=== PATIENT | male | born 1975 | race Caucasian/White ===

== ENCOUNTER 2018-01-03 10:00 | Emergency (ER) | payer SELFPAY ==
[2018-01-03] MEDS ORDERED: TETRACAINE HCL 0.5% 2ML OPTH ONE (10:33)
[2018-01-03] MEDS ORDERED: FLUORESCEIN SODIUM 0.6 MG/WRAP ONE (10:33)
[2018-01-03] MEDS ORDERED: HYDROCODONE/APAP 10/325 TAB ONE (10:37)
[2018-01-03] MEDS ORDERED: TETANUS & DIPHTHERIA TOX,ADULT 0.5 ML VIAL ONE (11:00)
--- NOTE | 2018-01-03 11:01 | EDPHYS ---
Physician Documentation [facility] Name: Fredis Calderon Age: 42 yrs Sex: Male : 1975 Arrival Date: 01/03/2018 Time: 10:03 Bed 10 Private MD: None, None ED Physician Sourav Dexter HPI: 01/03 10:32 This 42 yrs old Male presents to ER via Ambulatory with complaints of Eye joe Pain, Eye Injury. 10:32 The patient is experiencing pain, redness, The patient sustained contusion, to the left joe eye. Onset: The symptoms/episode began/occurred just prior to arrival, today. Duration: the symptoms are continuous. Aggravated by opening eye, Alleviated by blinking, covering eye. Associated signs and symptoms: Pertinent positives: headache. Severity of symptoms: At their worst the symptoms were moderate in the emergency department the symptoms are unchanged. The patient has not experienced similar symptoms in the past. Historical: - Allergies: 10:12 No Known Allergies; hj - Home Meds: 10:12 None [Active]; hj - PMHx: 10:12 Hypothyroidism; Pneumonia; hj - PSHx: 10:12 None; hj - Immunization history:: Adult Immunizations not up to date. - Family history:: not pertinent. - Social history:: Smoking status: unknown. ROS: 10:32 Constitutional: Negative for fever, chills, and weight loss, ENT: Negative for injury, joe pain, and discharge, Neck: Negative for injury, pain, and swelling, Cardiovascular: Negative for chest pain, palpitations, and edema, Respiratory: Negative for shortness of breath, cough, wheezing, and pleuritic chest pain, Abdomen/GI: Negative for abdominal pain, nausea, vomiting, diarrhea, and constipation, Back: Negative for injury and pain, : Negative for injury, bleeding, discharge, and swelling, MS/Extremity: Negative for injury and deformity, Skin: Negative for injury, rash, and discoloration, Neuro: Negative for headache, weakness, numbness, tingling, and seizure, Psych: Negative for depression, anxiety, suicide ideation, homicidal ideation, and hallucinations, Allergy/Immunology: Negative for hives, rash, and allergies, Endocrine: Negative for neck swelling, polydipsia, polyuria, polyphagia, and marked weight changes, Hematologic/Lymphatic: Negative for swollen nodes, abnormal bleeding, and unusual bruising. 10:32 Eyes: Positive for discharge, foreign body sensation, injury or acute deformity, pain, redness. Exam: 10:34 Constitutional: This is a well developed, well nourished patient who is awake, alert, joe and in no acute distress. Head/Face: Normocephalic, atraumatic. ENT: Nares patent. No nasal discharge, no septal abnormalities noted. Tympanic membranes are normal and external auditory canals are clear. Oropharynx with no redness, swelling, or masses, exudates, or evidence of obstruction, uvula midline. Mucous membranes moist. Neck: Trachea midline, no thyromegaly or masses palpated, and no cervical lymphadenopathy. Supple, full range of motion without nuchal rigidity, or vertebral point tenderness. No Meningismus. Chest/axilla: Normal chest wall appearance and motion. Nontender with no deformity. No lesions are appreciated. Cardiovascular: Regular rate and rhythm with a normal S1 and S2. No gallops, murmurs, or rubs. Normal PMI, no JVD. No pulse deficits. Respiratory: Lungs have equal breath sounds bilaterally, clear to auscultation and percussion. No rales, rhonchi or wheezes noted. No increased work of breathing, no retractions or nasal flaring. Abdomen/GI: Soft, non-tender, with normal bowel sounds. No distension or tympany. No guarding or rebound. No evidence of tenderness throughout. Back: No spinal tenderness. No costovertebral tenderness. Full range of motion. Male : Normal genitalia with no discharge or lesions. Skin: Warm, dry with normal turgor. Normal color with no rashes, no lesions, and no evidence of cellulitis. MS/ Extremity: Pulses equal, no cyanosis. Neurovascular intact. Full, normal range of motion. Neuro: Awake and alert, GCS 15, oriented to person, place, time, and situation. Cranial nerves II-XII grossly intact. Motor strength 5/5 in all extremities. Sensory grossly intact. Cerebellar exam normal. Normal gait. Psych: Awake, alert, with orientation to person, place and time. Behavior, mood, and affect are within normal limits. 10:34 Eyes: Periorbital structures: appear normal, Pupils: no acute changes, equal, round, and reactive to light and accomodation, Extraocular movements: intact throughout, Conjunctiva: normal, no acute changes, Corneas: abrasion, that is small, Sclera: white. 10:53 Eyes: Corneas: abrasion, at 6 o'clock, foreign body, is not appreciated, a fluorescein joe strip employed to appreciate the findings. Vital Signs: 10:13 BP 116 / 75; Pulse 68; Resp 18; Temp 98.2(TE); Pulse Ox 100% on R/A; Weight 81.65 kg; hj Height 5 ft. 10 in. (177.80 cm); Pain 10/10; 10:13 Body Mass Index 25.83 (81.65 kg, 177.80 cm) MDM: 10:22 Patient medically screened. [facility] 10:36 Data reviewed: vital signs, nurses notes, lab test result(s), radiologic studies, . [facility] 01/03 11:02 Order name: Other: patch eye; Complete Time: 11:36 [facility] 01/03 10:32 Order name: Eye Tray; Complete Time: 10:34 [facility] Administered Medications: 10:45 Drug: Tetracaine Solution (2 %) 2 ml Route: Topical; Site: left eye; 10:45 Not Given (Other Intervention Used): Bacitracin Ointment 1 strip Ophthalmic once; affected eye(s) 11:14 Drug: Tetanus-Diphtheria Toxoid Adult 0.5 ml {[employer] Representative: [employer]. Exp: 03/30/2020. Lot #: [id number]. } Route: IM; Site: right deltoid; 11:20 Drug: Barnhart 10 mg-325 mg 1 tabs Route: PO; 11:36 Drug: Tobramycin Ointment (0.3 %) 1 application Route: Ophthalmic; Site: left eye; Disposition: 01/03/18 11:00 Discharged to Home. Impression: Ocular pain, left eye, Injury of conjunctiva and corneal abrasion without foreign body. - Condition is Stable. - Discharge Instructions: Eye - Blurred Vision, Corneal Abrasion, Corneal Abrasion, [id number]. - Prescriptions for Tobrex 0.3 % Ophthalmic ointment - apply 1 inch ribbon by OPHTHALMIC route 5 times per day; 1 tube. Tylenol- Codeine #3 300-30 mg Oral Tablet - take 2 tablet by ORAL route every 6 hours As needed; 30 tablet. - Medication Reconciliation Form, Thank You Letter, Antibiotic Education, Prescription Opioid Use form. - Follow up: Jaxson Barrett; When: Upon discharge from the Emergency Department; Reason: Recheck today's complaints, Continuance of care, Re-evaluation by your physician. - Problem is new. - Symptoms have improved. Signatures: Sourav Dexter MD MD cha Williams, Irene, RN RN iw Joaquin, Henry, RN RN Corrections: (The following items were deleted from the chart) 11:44 11:00 01/03/2018 11:00 Discharged to Home. Impression: Ocular pain, left eye; Injury of iw conjunctiva and corneal abrasion without foreign body. Condition is Stable. Discharge Instructions: Eye - Blurred Vision, Corneal Abrasion, Corneal Abrasion, [id number]. Prescriptions for Tobrex 0.3 % Ophthalmic ointment - apply 1 inch ribbon by OPHTHALMIC route 5 times per day; 1 tube, Tylenol-Codeine #3 300-30 mg Oral Tablet - take 2 tablet by ORAL route every 6 hours As needed; 30 tablet. and Forms are Medication Reconciliation Form, Thank You Letter, Antibiotic Education, Prescription Opioid Use. Follow up: Jaxson Barrett; When: Upon discharge from the Emergency Department; Reason: Recheck today's complaints, Continuance of care, Re-evaluation by your physician. Problem is new. Symptoms have improved. joe
--- NOTE | 2018-01-03 11:01 | ER ---
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 Transition of care: patient was not received from another setting of care. Mechanism of Injury:. The patient denies any loss of vision. Onset of symptoms was January 02, 2018. Initial Sepsis Screen: Does the patient meet any 2 criteria? No. Patient's initial sepsis screen is negative. Does the patient have a suspected source of infection? No. Patient's initial sepsis screen is negative. Care prior to arrival: None. 10:10 Method Of Arrival: Ambulatory 10:10 Acuity: ARBEN 4 hj Triage Assessment: 10:12 General: Appears in no apparent distress. comfortable, Behavior is calm, cooperative, hj appropriate for age. Pain: Complains of pain in left eye. EENT: Historical: - Allergies: 10:12 No Known Allergies; hj - Home Meds: 10:12 None [Active]; hj - PMHx: 10:12 Hypothyroidism; Pneumonia; hj - PSHx: 10:12 None; hj - Immunization history:: Adult Immunizations not up to date. - Family history:: not pertinent. - Social history:: Smoking status: unknown. Screenin:00 Abuse screen: Denies threats or abuse. Denies injuries from another. Nutritional iw screening: No deficits noted. Tuberculosis screening: No symptoms or risk factors identified. Fall Risk None identified. Assessment: 11:00 General: Appears uncomfortable, Behavior is calm, cooperative. Pain: Complains of pain iw in left eye. Neuro: Level of Consciousness is awake, alert, obeys commands, Oriented to person, place, time. Cardiovascular: Patient's skin is warm and dry. Respiratory: Respiratory effort is even, unlabored, Respiratory pattern is regular. EENT: Eyes are tearing on outer aspect of conjuctiva of left eye and inner aspect of conjunctiva of left eye Sclera/Cornea are cloudy in outer aspect of conjuctiva of left eye, iris of left eye and inner aspect of conjunctiva of left eye are reddened in outer aspect of conjuctiva of left eye, iris of left eye and inner aspect of conjunctiva of left eye. Vital Signs: 10:13 BP 116 / 75; Pulse 68; Resp 18; Temp 98.2(TE); Pulse Ox 100% on R/A; Weight 81.65 kg; hj Height 5 ft. 10 in. (177.80 cm); Pain 10/10; 10:13 Body Mass Index 25.83 (81.65 kg, 177.80 cm) hj ED Course: 10:03 Patient arrived in ED. mr 10:04 None, None is Private Physician. mr 10:12 Triage completed. hj 10:12 Arm band placed on right wrist. hj 10:15 Patient has correct armband on for positive identification. iw 10:22 Sourav Dexter MD is Attending Physician. joe 10:26 Vane Pelaez, DERICK is Primary Nurse. iw 11:00 Jaxson Barrett MD is Referral Physician. joe 11:00 Assist provider with eye exam of left eye. using fluorescein stain, Performed by Sourav Dexter MD Dressed with eye patch Patient tolerated well. 11:43 Patient did not have IV access during this emergency room visit. iw Administered Medications: 10:45 Drug: Tetracaine Solution (2 %) 2 ml Route: Topical; Site: left eye; iw 10:45 Not Given (Other Intervention Used): Bacitracin Ointment 1 strip Ophthalmic once; iw affected eye(s) 11:14 Drug: Tetanus-Diphtheria Toxoid Adult 0.5 ml {[employer]: [employer]. Exp: iw 03/30/2020. Lot #: [id number]. } Route: IM; Site: right deltoid; 11:20 Drug: Gunlock 10 mg-325 mg 1 tabs Route: PO; iw 11:36 Drug: Tobramycin Ointment (0.3 %) 1 application Route: Ophthalmic; Site: left eye; iw Outcome: 11:00 Discharge ordered by . joe 11:40 Discharged to home ambulatory, with family. iw 11:40 Condition: good 11:40 Discharge instructions given to patient, family, Instructed on discharge instructions, follow up and referral plans. medication usage, need to follow up with Dr. Barrett's office Demonstrated understanding of instructions, follow-up care, medications, Prescriptions given X 2. 11:44 Patient left the ED. iw Signatures: Sourav Dexter MD MD cha Rivera, Maria mr Williams, Irene, David Baldwin RN, RN RN hj Corrections: (The following items were deleted from the chart) 10:14 10:13 Pulse 68bpm; Resp 18bpm; Pulse Ox 100% RA; Temp 98.2F Temporal; 81.65 kg; Height hj 5 ft. 10 in.; BMI: 25.8; Pain 06/07; hj
[2018-01-03] MEDS ORDERED: TOBRAMYCIN SULF 0.3% OPTH OINT OPTH ONE (11:30)
== END 2018-01-03 11:44 | disposition home or self-care (01) ==
LOC: ER 10:00
DX: S05.02XA Injury of conjunctiva and corneal abrasion without foreign body, left eye, initial encounter (principal); W22.8XXA Striking against or struck by other objects, initial encounter; Y93.89 Activity, other specified; Y92.89 Other specified places as the place of occurrence of the external cause; Z23 Encounter for immunization
CPT/HCPCS: 90714; 99283